=== PATIENT | female | born 1990 | race Two or more races ===

== ENCOUNTER 2022-11-30 10:34 | Emergency (ER) | payer SELFPAY ==
[~2022-11-30] VITALS: Ht 165.1 cm; Wt 58.1 kg
[2022-11-30] MEDS ORDERED: HYDROCODONE/APAP 5/325MG TABLET ONE (11:15)
[2022-11-30] MEDS ORDERED: CEPHALEXIN MONOHYDRATE 500 MG CAPSULE PO ONE (11:16)
[2022-11-30] MEDS ORDERED: CEPH500C2 PO (11:19)
[2022-11-30] MEDS ORDERED: HYDR-4303 PO (11:19)
[2022-11-30] MEDS: CEPHALEXIN MONOHYDRATE 500 MG CAPSULE PO ONE (11:19)
[2022-11-30] MEDS: HYDROCODONE/APAP 5/325MG TABLET PO ONE (11:21)
[2022-11-30 11:25] LABS: APPEARANCE,URINE CLOUDY (CLEAR); BILIRUBIN,URINE NEGATIVE (NEGATIVE); BLOOD, URINE 3+ Ery/uL (NEGATIVE); COLOR,URINE YELLOW (YELLOW); KETONES,URINE NEGATIVE (NEGATIVE); LEUKOCYTE ESTERASE ,URINE 3+ (NEGATIVE); NITRITE, URINE NEGATIVE (NEGATIVE); PROTEIN,URINE 2+ mg/dl (NEGATIVE); UGLUCOSE NEGATIVE (NEGATIVE); UROBILINOGEN,URINE 0.2 EU/dL (0.2)
[2022-11-30 11:28] LABS: PREGNANCY TEST URINE QUAL NEGATIVE (NEGATIVE)
[2022-11-30 11:44] LABS: ADD URINE CULTURE YES; BACTERIA,URINE Moderate /HPF (None Seen); SQUAMOUS EPITHELIAL CELL,UR Few /HPF (None Seen); WBC,URINE 81-100 /HPF (0-3)
[2022-11-30 11:47] VITALS: BP 119/69; TEMP 98.4; O2SAT 100
== END 2022-11-30 11:47 | disposition home or self-care (01) ==
LOC: ER 10:46
DX: N12 Tubulo-interstitial nephritis, not specified as acute or chronic (principal)
CPT/HCPCS: 81001; 84703-TC; 87086-TC